=== PATIENT | female | born 1985 | race Caucasian/White ===

== ENCOUNTER → 2020-05-28 | Outpatient (CLI) | payer MEDICAID ==
--- NOTE | 2020-05-28 13:41 | RAD ---
EXAMINATION: XR BILATERAL HIP (WITH OR WITHOUT PELVIS) 2 VIEWS_RIGHT CLINICAL HISTORY: Hip pain TECHNIQUE: XR BILATERAL HIP (WITH OR WITHOUT PELVIS) 2 VIEWS_RIGHT Number of Images/Views: 4 COMPARISON: None FINDINGS: Joint space alignment maintained in the right hip. Limited evaluation of the left hip unremarkable. P ubic symphysis and SI joints maintained. No acute fracture. IMPRESSION: No acute osseous abnormality right hip. Electronically signed by: Duane Dodson DO (05/28/2020 1:39 PM) PO
--- NOTE | 2020-05-28 13:44 | RAD ---
EXAMINATION: XR RIBS AND CHEST 4+VIEWS CLINICAL HISTORY: Chest/rib pain TECHNIQUE: XR RIBS AND CHEST 4+VIEWS COMPARISON: None FINDINGS: No acute rib fracture. Lungs clear with no evidence of pneumothorax or pleural effusion. Normal heart size. IMPRESSION: No acute rib fracture. Electronically signed by: Duane Dodson DO (05/28/2020 1:42 PM) [facility]
== END ==
LOC: URGCARE 12:53
PROVIDERS: ATTEND Nurse Practitioner Family
DX: R07.81 Pleurodynia (principal); M25.551 Pain in right hip
CPT/HCPCS: 71111; 73502